=== PATIENT | female | born 1960 | race Caucasian/White ===

== ENCOUNTER 2024-09-09 12:54 | Emergency (ER) | payer MEDICARE, SELFPAY ==
[2024-09-09 13:13] VITALS: BP 142/80; PULSE 94; TEMP 36.8; O2SAT 97; BMI 21.3
--- NOTE | 2024-09-09 13:33 | XR_ITS ---
The [address] [address] Patient Name: ARON MEADOWS MRN: [id number] date: 1960 Sex: F Assigned Patient Location: ER Current Patient Location: ER Accession/Order Number: [id number] Exam Date: 09/09/2024 13:54 Report Date: 09/09/2024 14:22 At the request of: TANG MCGREGOR Procedure: XR tibia fibula RT 2V PROCEDURE: XR tibia fibula RT 2V HISTORY: laceration to lower right leg COMPARISON: None. FINDINGS: BONES:No fracture, acute abnormality, or significant arthropathy. SOFT TISSUES:Skin surface irregularity compatible with history of laceration to anterior lateral mid castrejon. No radiopaque foreign body. EFFUSION:None visible. OTHER: Negative. XR/XR tibia fibula RT 2V IMPRESSION: 1. Anterior soft tissue injury. No radiopaque foreign body. 2. No fracture or appreciable acute bone involvement. Electronically authenticated by: LENNOX GARCIA Date: 09/09/2024 14:22
[2024-09-09] MEDS: ADACEL DIPH,PERTUSS(ACELL),TET VAC/PF 0.5 ML ADULT SYRINGE IM (15:12)
--- NOTE | 2024-09-09 15:38 | CT_ITS ---
The [address] [address] Patient Name: ARON MEADOWS MRN: [id number] date: 1960 Sex: F Assigned Patient Location: ER Current Patient Location: Accession/Order Number: [id number] Exam Date: 09/09/2024 16:02 Report Date: 09/09/2024 16:47 At the request of: COLT NOBLES Procedure: CT pelvis wo con EXAM: CT pelvis wo con HISTORY: The patient is a 64-year-old female, pain COMPARISON: None. TECHNIQUE: CT images were obtained through the bony pelvis and both hips without intravenous contrast and reformatted in 2 dimensions. Dose reduction techniques were achieved by using automated exposure control and/or adjustment of mA and/or kV according to patient size and/or use of iterative reconstruction technique. FINDINGS: The bone images demonstrate no fractures or cortical discontinuities within either proximal femur or elsewhere throughout the bony pelvis. Specifically, no fractures or cortical discontinuities are seen within the sacrum or coccyx. The alignment of both hip joints are maintained. The sacroiliac joints are maintained. The pubic symphysis is maintained. Chondrocalcinosis is seen within the pubic symphysis. This is a nonspecific finding. The soft tissue images demonstrate a right adnexal cyst. No other abnormal fluid collections are seen on this non-contrast enhanced study. CT/CT pelvis wo con IMPRESSION: No fractures or dislocations. Electronically authenticated by: LORA TYLER Date: 09/09/2024 16:47
[2024-09-09] MEDS: HYDROCODONE/ACET 5-325 MG TABLET 1 TAB PO (15:57)
--- NOTE | 2024-09-09 16:43 | ED_ITS ---
HPI HPI - General Adult General Chief complaint: Wound/Laceration Stated complaint: LOWER EXTRIMITY INJURY Time Seen by Provider: 09/09/24 13:33 Source: patient Mode of arrival: Wheelchair Limitations: no limitations History of Present Illness HPI narrative: Patient is a 64-year-old female who is presenting to the ER today with chief complaint of a fall. Patient was walking her dog, patient had her feet tangled with a dog rope/chain, and patient fell down, landing on her buttocks, along with a right anterior leg laceration. Patient did not hit her head. She has no headache or neck pain. Patient has ecchymosis to her lower extremities. Patient has a large skin tear to the right anterior castrejon. Patient takes a baby aspirin a day. Patient has a history of leukemia. Patient has no chest pain, no shortness of breath. No abdominal pain, nausea or vomiting. Patient was brought to the ER, she had nothing for pain prior to arrival. Patient is having significant amount of pain to sacrum and coccyx. Patient will have an update on her tetanus shot today. All systems are negative except as noted/marked. All systems reviewed and otherwise negative. Nurses note and vital signs reviewed and patient is not hypoxic. General: The patient appears well and in no apparent distress. Patient is resting comfortably on cart. Patient is not toxic, lethargic, or listless Skin: Warm, dry, no pallor noted. There is no rash noted. No petechiae, purpura. Patient has approximate 4 x 7 V-shaped skin tear to the right anterior castrejon, no active bleeding. Patient has ecchymosis distally to the right skin tear to the ankle and foot, no pain to the area. Patient has some ecchymosis to the left lower extremity as well, along with some the forms bilateral. Head: Normocephalic, atraumatic; patient has no scalp hematoma. She has no midline or paracervical tenderness palpation. Range of motion of cervical spine no difficulty. Eye: Normal conjunctiva, no drainage, EOMI. PERRL Ears, Nose, Mouth, and Throat: oral mucosa is moist. Nares patent. Mouth without vesicles. Cardiovascular: Regular Rate and Rhythm, no murmur, gallop, rub Respiratory: Patient is in no distress, no accessory muscle use, lungs are clear to auscultation, no wheezing, rales or rhonchi Back: Midline and para sacral and coccyx tenderness to palpation, patient has mild to moderate lower paralumbar tenderness palpation, from approximately L5- S1. No rash, no ecchymosis to upper buttocks, or along the lower lumbar/sacral/coccyx area posteriorly patient has moderate to severe non- tender, no CVA tenderness bilaterally to percussion. No CT LS midline pain GI: no tenderness to palpation, no masses appreciated. No rebound, guarding, or rigidity noted. No distention Musculoskeletal: Patient has full range of motion of all of the extremities, no motor, sensory, or focal neurological deficits Neurological: A&O x4, normal speech Psychiatric: Cooperative Related Data Previous Rx's ?Medication ?Instructions ?Recorded hydrocodone 5 mg-acetaminophen 325 0.5 tab PO Q4H PRN pain #10 tabs 09/09/24 mg tablet Allergies Allergy/AdvReac Type Severity Reaction Status Date / Time Sulfa (Sulfonamide AdvReac Mild Fever Verified 09/09/24 13:13 Antibiotics) Opioid HPI Opioid Management Most Recent Opioid Data: Last Pain Scale 5 09/09/24 15:57 09/09/24 Last MAR Pain Assessment 09/09/24 15:57 PFSH PFSH Social History Little interest or pleasure in doing things: not at all Feeling down, depressed, or hopeless: not at all Exam Constitutional Vital Signs, click to edit/add: Last Vital Signs Temp 98.2 F 09/09/24 13:13 Pulse 94 H 09/09/24 13:13 Resp 18 09/09/24 13:13 BP 142/80 H 09/09/24 13:13 Pulse Ox 97 09/09/24 13:13 O2 Del Method Room Air 09/09/24 13:13 Course Vital Signs Vital signs: Vital Signs Temperature 98.2 F 09/09/24 13:13 Pulse Rate 94 H 09/09/24 13:13 Respiratory Rate 18 09/09/24 13:13 Blood Pressure 142/80 H 09/09/24 13:13 Pulse Oximetry 97 09/09/24 13:13 Oxygen Delivery Method Room Air 09/09/24 13:13 Temperature 98.2 F 09/09/24 13:13 Pulse Rate 94 H 09/09/24 13:13 Respiratory Rate 18 09/09/24 13:13 Blood Pressure 142/80 H 09/09/24 13:13 Pulse Oximetry 97 09/09/24 13:13 Oxygen Delivery Method Room Air 09/09/24 13:13 Medical Decision Making MDM Narrative Medical decision making narrative: Patient is having significant pain to her sacrum and coccyx, no pain to bilateral pelvic crest, or bilateral ASIS or PSIS. Patient did have a CT of the pelvis secondary to patient's size, age, female, history of osteoporosis, pain, and fall. Patient tib-fib x-ray shows no acute fracture dislocation or acute abnormality. Patient had a skin tear. Patient had tetanus update. Skin tear was irrigated and clean, Steri-Strips were placed. Please see nursing notes. [address] of the pelvis shows no acute fracture. Education on using ice, stretching was discussed. Patient already uses a donut pad at home when she is sitting down, using additional pillows resources were discussed. Patient was educated on more pain that could happen tonight and tomorrow, she continues ice, Tylenol, stretching. Patient knows not to take Tylenol with Sutherland, this was pl aced on her discharge paperwork as well. No questions at discharge. Discharge Plan Discharge Chief Complaint: Wound/Laceration Clinical Impression: Coccygeal contusion, Skin tear of right lower leg without complication, Fall, Ecchymosis Patient Disposition: Home, Self-Care Time of Disposition Decision: 17:32 Condition: Fair Prescriptions / Home Meds: New hydrocodone-acetaminophen 5-325 mg tablet 0.5 tab PO Q4H PRN (Reason: pain) Qty: 10 0RF Print Language: Greek Instructions: Contusion in Adults (ED), Skin Tear (ED), Fall Prevention (ED), Laceration Without Closure (ED), Ecchymosis (ED) Additional Instructions: Education on Steri-Strips and skin tears have been done at bedside and on discharge paperwork. Use topical antibiotic ointment of Neosporin, bacitracin, or triple antibiotic to the wound 3-4 times a day to help prevent infection. Steri-Strips will fall off in approximately 5 to 7 days, let them fall off on their own. Do not have your legs submerged under water for the next 2 weeks to help prevent infection. Follow-up with PCP for wound evaluation and reassessment. Use donut pads to help sit on to help relieve the pressure from your tailbone. Also sit on pillows or cushions to help as well. A copy of your CT report has been given to you and explained at bedside Alternate Tylenol and either Motrin, Advil, or ibuprofen every 4 hours to help with pain. If you are having severe pain, substitute a Sutherland tablet instead of Tylenol. Do not take Tylenol and Sutherland at the same time, you may actually take too much Tylenol at 1 setting or in 1 day. Maximum Tylenol dose of Tylenol is 3000 mg a day. Maximum dose of either Motrin, Advil, or ibuprofen is 2400 mg a day. Referrals: Physician,Non-Staff, MD [Physician] - 1 week
== END 2024-09-09 17:57 | disposition home or self-care (01) ==
PROVIDERS: Emergency Provider Emergency Medicine; PCP Family Medicine
DX: S30.0XXA Contusion of lower back and pelvis, initial encounter (principal); W01.0XXA Fall on same level from slipping, tripping and stumbling without subsequent striking against object, initial encounter; S81.811A Laceration without foreign body, right lower leg, initial encounter; S80.12XA Contusion of left lower leg, initial encounter; S80.11XA Contusion of right lower leg, initial encounter; Z79.82 Long term (current) use of aspirin; Z23 Encounter for immunization; M81.0 Age-related osteoporosis without current pathological fracture
CPT/HCPCS: 72192; 73590; 90471; 90715; 99285

== ENCOUNTER 2025-04-14 15:22 | Outpatient (OUT) | payer MEDICARE, SELFPAY ==
--- OUTSIDE RECORDS SUMMARY | 2025-04-14 15:26 | XMS_ITS | Encounter Summary ---
Author Organization [facility] Address [id number] [address] [place] [address] Care Team Providers Care Surgical Product Sales Consultant Name Role Phone Jessica Saab MD Primary Care Provider [phone] Encounter Details Date Type Department Care Team (Late st Contact Info) Description 06/18/2017 Telephone [facility] [address] [facility] [place] [address] Pooja Mcduffie CMA Social History Tobacco Use Types Packs/Day Years Used Date Smoking Tobacco: Never Smokeless Tobacco: Never Alcohol Use Standard Drinks/Week Comments Yes 1 (1 standard drink = 0.6 oz pur e alcohol) seldom,weekly Comments No Sex and Gender Information Value Date Recorded Sex Assigned at Not on file Legal Sex Female 11:32 AM EDT Gender Identity Not on file Sexual Orientation Not on file documented as of this encounter Miscellaneous Notes * Telephone Encounter - Pooja Mcduffie CMA - 06/18/2017 9:36 AM EDT RADIOLOGY REQUESTED AN MRI FOR W/ AND W/O CONTRAST OF THE ABDOMEN Pooja Mcduffie CMA 06/18/17 0937 documented in this encounter Plan of Treatment Not on file documented as of this encounter Visit Diagnoses Not on filedocumented in this encounter Care Teams Surgical Product Sales Consultant Relationship Specialty Start Date End Date Jessica Saab MD [address] [place], [place] [id number] PCP - General Family Medicine 12/18/23 documented as of this encounter
--- OUTSIDE RECORDS SUMMARY | 2025-04-14 15:26 | XMS_ITS | Encounter Summary ---
Author Organization [facility] Address [address] [place] [address] Care Team Providers Care Cost Reduction Engineer Name Role Phone Jessica Saab MD Primary Care Provider [phone] Jessica Saab MD Primary Care Provider [phone] Encounter Details Date Type Department Care Team (Late st Contact Info) Description 05/05/2023 Abstract [facility] [address] [place] [id number] Keith Gibbons, DPAmol [address] [place], [place] [id number] Social History Tobacco Use Types Packs/Day Years Used Date Smoking Tobacco: Never Tobacco Cessation:Counseling Given: Not Answered Alcohol Use Standard Drinks/Week Comments Yes 1 (1 standard drink = 0.6 oz pure alcohol) 1-2 drinks less than monthly in the past year, Caffeine intake: 1-2 cups per day coffee Comments Unknown Sex and Gender Information Value Date Recorded Sex Assigned at Not on file Legal Sex Female 6:41 PM EDT Gender Identity Not on file Sexual Orientation Not on file documented as of this encounter Plan of Treatment Not on file documented as of this encounter Visit Diagnoses Not on filedocumented in this encounter Care Teams Cost Reduction Engineer Relationship Specialty Start Date End Date Jessica Saab MD PCP - General Family Medicine 05/04/23 02/22/25 Jessica Saab MD [address] [place] [phone] PCP - General Family Medicine 02/23/25 documented as of this encounter
--- OUTSIDE RECORDS SUMMARY | 2025-04-14 15:26 | XMS_ITS | Encounter Summary ---
Author Organization [facility] Address [id number] [address] [place] [address] Care Team Providers Care Toll Mechanic Name Role Phone Jessica Saab MD Primary Care Provider [phone] Reason for Visit * Reason Onset Date Comments Med Refill 01/24/2019 Encounter Details Date Type Department Care Team (Late st Contact Info) Description 01/24/2019 Refill [facility] [address] [place] [address] Irina Snider CMA Social History Tobacco Use Types Packs/Day Years Used Date Smoking Tobacco: Never Smokeless Tobacco: Never Alcohol Use Standard Drinks/Week Comments Yes 1 (1 standard drink = 0.6 oz pur e alcohol) seldom,weekly PHQ-2 Answer Date Recorded PHQ-2 Score 0 10/21/2018 Childcare Answer Date Recorded Childcare Unknown 01/19/2019 Employment Answer Date Recorded Employment Unknown 01/19/2019 Comments No Sex and Gender Information Value Date Recorded Sex Assigned at Not on file Legal Sex Female 11:32 AM EDT Gender Identity Not on file Sexual Orientation Not on file documented as of this encounter Plan of Treatment Not on file documented as of this encounter Visit Diagnoses Not on filedocumented in this encounter Additional Health Concerns Assessment Noted Time PHQ-9 Depression Total Score: 0 10/13/20 18 2:00 PM EST documented as of this encounter Care Teams Toll Mechanic Relationship Specialty Start Date End Date Jessica Saab MD [address] [place] [address] PCP - General Family Medicine 12/18/23 documented as of this encounter
--- OUTSIDE RECORDS SUMMARY | 2025-04-14 15:26 | XMS_ITS | Clinical Summary ---
Author Organization [facility] Address [address] [place] [address] Care Team Providers Care Trousseau Consultant Name Role Phone Unavailable Primary Care Provider Unavailabl e Social History Tobacco Use Types Packs/Day Years Used Date Smoking Tobacco: Never Assessed [place] Safety & Environment Answer Date Rec orded Fear of Current or Ex-Partner Not on file Emotionally Abused Not on file 12/17/2023 Physically Abused Not on file 12/17/2023 Sexually Abused Not on file 12/17/2023 Physically or Sexually Abused Not on file Comments Unknown Sex and Gender Information Value Date Recorded Sex Assigned at Not on file Legal Sex Female 10:02 PM EDT Gender Identity Not on file Sexual Orientation Not on file Plan of Treatment Not on file
--- OUTSIDE RECORDS SUMMARY | 2025-04-14 15:26 | XMS_ITS | Clinical Summary ---
Author Organization [facility] Address [address] [place] [address] Care Team Providers Care Sales Account Director Name Role Phone Dina Chaparro MD Primary Care Provider [phone] Allergies Active Allergy Reactions Criticality Noted Date Comments Morphine 02/19/2013 Penicillins 02/19/2013 Sulfa Antibiotics 02/19/2013 Medications cycloSPORINE (SANDIMMUNE) 100 MG capsule Take 100 mg by mouth daily. Active sulfacetamide (BLEPH-10) 10 % ophthalmic ointment 10 % daily. Every 6 hours. Active vancomycin (VANCOCIN) 125 MG capsule Take 125 mg by mouth daily. Active omeprazole (PRILOSEC) 20 MG capsule Take 40 mg by mouth daily. Active multivitamin (THERAGRAN) per tablet Take 1 tablet by mouth daily. Active acyclovir (ZOVIRAX) 400 MG tablet Take 400 mg by mouth 2 times daily. Active metronidazole (METROCREAM) 0.75 % cream Apply 0.75 % topically 2 times daily. Apply topically 2 times daily. Active olopatadine (PATANOL) 0.1 % ophthalmic solution Place 1 drop into both eyes 2 times daily. Active fluticasone (FLOVENT HFA) 220 MCG/ACT inhaler Inhale 1 puff into the lungs 2 times daily. Active albuterol (PROVENTIL HFA;VENTOLIN HFA) 108 (90 BASE) MCG/ACT inhaler Inhale 2 puffs into the lungs every 6 hours as needed. Active fluticasone (FLONASE) 50 MCG/ACT nasal spray 1 spray by Nasal route as needed. Active acetaminophen (TYLENOL) 650 MG/20.3ML SUSP Take 650 mg by mouth 2 times daily. Active predniSONE (DELTASONE) 10 MG tablet Take 10 mg by mouth daily. Active Active Problems Problem Noted Date Diagnosed Date Leukemia 02/20/2013 Asthma 02/20/2013 Lumbar vertebral fracture 02/19/2013 Immunizations Immunization Administration Dates Next Due Td, unspecified formulation 02/19/2013 Social History Tobacco Use Types Packs/Day Years Used Date Smoking Tobacco: Never Assessed Comments Unknown Sex and Gender Information Value Date Recorded Sex Assigned at Not on file Legal Sex Female 3:18 PM EST Gender Identity Not on file Sexual Orientation Not on file Last Filed Vital Signs Vital Sign Reading Time Taken Comments Blood Pressure 121/67 02/20/2013 4:00 PM EDT Pulse 85 02/20/2013 4:00 PM EDT Temperature 36.5 C (97.7 F) 02/20/2013 4:00 PM EDT Respiratory Rate 11 02/20/2013 4:00 PM EDT Oxygen Saturation 100% 02/20/2013 4:00 PM EDT Inhaled Oxygen Concentration - - Weight 61.2 kg (135 lb) 02/19/2013 11:05 PM EDT Height 157.5 cm (5' 2 ) 02/19/2013 11:05 PM EDT Body Mass Index 24.69 02/19/2013 11:05 PM EDT Plan of Treatment Not on file Advance Directives * Full Code (Latest Code Status on File) Date Activated Date Inactivated Comments 02/19/2013 10:59 PM 02/20/2013 11:39 PM Care Teams Sales Account Director Relationship Specialty Start Date End Date Dina Chaparro MD [address] [place] [address] PCP - General 02/20/13
--- OUTSIDE RECORDS SUMMARY | 2025-04-14 15:26 | XMS_ITS | Clinical Summary ---
Author Organization [employer] [facility] tem Address [id number] [address] [place] [address] Care Team Providers Care Optical Goods Drill Operator Name Role Phone Jessica Saab MD Primary Care Provider [phone] Allergies Active Allergy Reactions Criticality Noted Date Comments Influenza Virus Vaccines Other (See Comments) High 10/22/2017 Pt on immunosuppression and can not receive live vaccine Morphine 09/11/2016 Penicillins 09/11/2016 Sulfa (Sulfonamide Antibiotics) 09/11/2016 Trimethoprim 10/08/2020 Other reaction(s): Unknown, Unknown Medications food supplemt, lactose-reduced (NUTRITIONAL DRINK) liquidIndications: Weight loss of more than 10% body weight,Adult T-cell leukemia/lymphoma, 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 90 Bottle 3 02/04/20 18 Active predniSONE (DELTASONE) 5 mg tabletIndications: Large granular lymphocytic leukemia (CMS-HCC) Take 1 tablet (5 mg total) by mouth daily. 90 tablet 05/21/20 19 Active hcxexq-fypolzot-jz ylase (CREON) 24,000-76,000 -120,000 unit capsule,delayed release(DR/EC)Kate cations:Pancreatic insufficiency Take 1 capsule (24,000 units of lipase total) by mouth 3 (three) times a day with meals. 90 capsule 1 05/21/20 19 Active danazol (DANOCRINE) 100 mg capsuleIndications :Chronic anemia Take 1 capsule (100 mg total) by mouth 2 (two) times a day. 180 capsule 05/21/20 19 Active Additional Information Patient taking differently: 200 mgoral 2 times daily, Reported on 01/16/2023 verapamil SR (CALAN-SR) 240 mg CR tablet TAKE ONE TABLET BY MOUTH DAILY 90 tablet 1 08/01/20 19 Active ivermectin 1 % cream Apply topically daily. Active vorinostat (ZOLINZA) 100 mg chemo capsule Take 3 capsules by mouth daily Active deferasirox (EXJADE) 125 MG disintegrating tablet Take 180 mg by mouth every morning before breakfast. 2 tabs /day Active levothyroxine (SYNTHROID, LEVOTHROID) 100 MCG tablet Take 1 tablet (100 mcg total) by mouth in the morning. Active levothyroxine (SYNTHROID, LEVOTHROID) 25 MCG tablet Take 1 tablet (25 mcg total) by mouth in the morning. Active aspirin 81 mg chewable tablet Chew 1 tablet (81 mg total) and swallow in the morning. 30 tablet 02/08/20 Active rosuvastatin (CRESTOR) 10 mg tablet Take 1 tablet (10 mg total) by mouth in the morning. 30 tablet 02/08/20 Active zoledronic dzpd-rgfgzbrJ-ghuy r (RECLAST) 5 mg/100 mL piggyback as directed Intravenous Active sennosides (SENNA ORAL) Take by mouth. Activ e acetaminophen (TYLENOL ORAL) Take by mouth. Active dicyclomine (BENTYL) 10 mg capsule Take 1 capsule (10 mg total) by mouth 4 (four) times a day before meals and nightly. Active lactulose (CHRONULAC) 10 gram/15 mL solution Take 30 mL (20 g total) by mouth 3 (three) times a day. Active polyethylene glycol (GLYCOLAX) 17 gram packet Take 17 g by mouth in the morning. 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 Specialist do not think pancreatic cyst is cause of pain. Pt states creon help constipation and appetite but not intermittent pain Ovarian cyst 06/21/2019 Chronic anemia 05/21/2019 Preventative health care 03/07/2019 Assessment & Plan (03/07/2019 2:46 PM EDT): DATE WHEN VACCINE ------- --FLU YRLY IN FALL No live vaccine --TETANUS Q 10 YRS needs --HSV ONCE AGE 59 No live vaccine --PREVNAR 13 ONCE AGE 64 2014 --PPSSV 23 ONCE AGE 65 2013 CA SCREENING ----- --COLONOSCOPY AGE 50 - 74 Gi apt in Oct 2017 --FIT AGE 50 - 75 na --PSA AGE 50 - 70 na -DEAN AGE 50 - 70 na --PAP AGE 21 - 65 11/19/16 Dr. Chaparro --MAMMOGRAM AGE 45 TO 75 08/18/17 OSTEOPOROSIS ----- --DEXA MENOPAUSAL 04/20/17 OPTHO YEALRY ? DENTAL YEARLY ? MEDICARE WELLNESS YEARLY (65) na DM FOOT EXAM YEARLY na Essential hypertension 01/19/2018 Overview (10/26/2018): Verapamil , lisinopril Osteoporosis 05/19/2017 Overview (05/17/2019): Vitamine D suppliment, Tums/ Hx pathological Fx / On steroids HLD (hyperlipidemia) 05/19/2017 Moderate asthma without complication 05/19/2017 Overview (10/26/2018): Albuterol, Breo, Secondary pulmonary hypertension 11/07/2016 Overview (10/26/2018): [facility] [place] Rheumatoid arthritis of knee 11/08/2015 Overview (10/26/2018): On steroid intermediate current use of systemic steroids 04/10 Spinal stenosis of lumbar region 02/21/2013 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 - Admitted for ATG; PICC placed 07/30 (to be pulled prior to discharge) - Day 5 ATG (D1=08/03/2017) - For discharge, pt will go home on prednisone 60 mg daily x14 days, cyclosporine 150 mg BID and acyclovir Uterine fibroid Overview (06/30/2017): MRI completed 2016 Personal history of immunosupression therapy Overview (10/26/2018): leukemia / on steroids GERD (gastroesophageal reflux disease) Overview (10/26/2018): sucralfate Pancreatic insufficiency Overview (10/26/2018): Creon Constipation Overview (10/26/2018): Senna Vitamin D deficiency Overview (10/26/2018): Vitamin d def Magnesium deficiency Overview (10/26/2018): Magnesium suppliment Resolved Problems Problem Noted Date Diagnosed Date Resolved Date Abnormal US (ultrasound) of abdomen 03/02/2018 10/26/2018 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/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 05/17/2019 Adult T-cell leukemia 05/19/20172018 Human parvovirus infection 05/19/2017 0 10/26/2018 Rosacea 05/19/2017 10/26/2018 Abnormal electrocardiogram 10/23/2015 0 10/26/2018 Flexor tenosynovitis of finger 04/10/2015 06/21/2019 Pathological fracture due to osteoporosis 04/10/2015 05/17/2019 Neutropenia 01/10/2013 05/17/2019 Overview (05/19/2017): Overview: ICD-10 Go-Live Postherpetic neuralgia 11/29/201205/17 Overview (05/19/2017): Overview: Continue gabapentin Pancreatic lesion 05/17/2019 Overview (10/26/2018): MRI with probable cyst/2016/repeat due October 2017 / extensive history of recurrent cyst Immunizations Immunization Administration Dates Next Due Influenza, Unspecified 07/26/2016 Pneumococcal Conjugate 07/26/2014 Pneumococcal Conjugate 13-Valent 08/20/2015 Family History Medical History Relation Name Comments Alcohol abuse Brother Hypertension Brother Atrial fibrillation Father Cancer Father Diabetes Father Heart disease Father Breast cancer Mother Cancer Mother Diabetes Mother Heart disease Mother Relation Name Status Comments Brother Father Alive Mother Social History Tobacco Use Types Packs/Day Years Used Date Smoking Tobacco: Never Smokeless Tobacco: Never Tobacco Cessation:Counseling Given: Not Answered Alcohol Use Standard Drinks/Week Comments Not Currently 1 (1 standard drink = 0.6 oz pur e alcohol) very little [employer] Utilities Answer Date Recorded In the past 12 months has e Sports[employer], gas, oil, or water [employer] threatened to shut off services in your home? No 12/18/2023 PHQ-2 Answer Date Recorded Total Score 3 01/28/2024 PRAPARE - Transportation Answer Date Re corded In the past 12 months, has l ack of transportation kept you from medical appointments or from getting medications? No 11/27 In the past 12 months, has l ack of transportation kept you from meetings, work, or from getting things needed for daily living? No 12/18/2023 Housing Instability Answer Date Recorde d Are you worried or concerned that in the next two months you may not have stable housing that you own, rent or stay in as a part of a household? No 12/18/2023 Childcare Answer Date Recorded Childcare Unknown 04/04/2019 Employment Answer Date Recorded Employment Unknown 04/04/2019 Hunger Screening Answer Date Recorded Within the past 12 months we worried whether our food would run out before we got money to buy more. Never True 01/28/2024 Within the past 12 months th e food we bought just didn't last and we didn't have money to get more. Never True 01/28/2024 Purpose - Life Answer Date Recorded Purpose and direction in life Unknown Comments No Sex and Gender Information Value Date Recorded Sex Assigned at Not on file Legal Sex Female 11:32 AM EDT Gender Identity Not on file Sexual Orientation Not on file Last Filed Vital Signs Vital Sign Reading Time Taken Comments Blood Pressure 118/58 01/28/2024 11:33 AM EDT Pulse 76 01/28/2024 11:33 AM EDT Temperature 36.9 C (98.4 F) 12/19/2023 7:50 AM EST Respiratory Rate 16 12/19/2023 7:50 AM EST Oxygen Saturation 98% 12/19/2023 7:50 AM EST Inhaled Oxygen Concentration - - Weight 51.7 kg (114 lb) 01/28/2024 11:33 AM EDT Height 152.4 cm (5') 01/28/2024 11:33 AM EDT Body Mass Index 22.26 01/28/2024 11:33 AM EDT Plan of Treatment Health Maintenance Due Date Last Done Comments Zoster (Shingles) Vaccine (1 of 2) 1978 DTaP,Tdap and Td Vaccines (1 - Tdap) 02/20/2013 02/19/2013 Mammogram 04/05/2020 04/05/2019, 09/10/2017 COVID-19 Vaccine (3 - Modern a risk series) 03/13/2021 02/13/2021, 01/16/2021 Colonoscopy 05/05/2023 05/05/2013 Fall Risk Screening 2024 Adult BMI Screening 01/27/2025 01/28/2024 Depression Screening 01/27/2025 01/28/2024 Tobacco Screening 05/10/2025 05/10/2024 Influenza Vaccine 06/26/2025 08/03/2023, , 07/03/2021, Additional history exists Pap Smear Discontinued 11/17/2016, 11/17/2016 Goals Goal Patient Goal Type Associated Problems Recent Progress Patient-Stated? Author home General Yes Bella Herrmann LSW Note: Evaluation of progress towards goal: Safe dc transition from hospital to home. Medical Devices Implanted Type Area Solidworks Drafter Device Identifier Shelf Expiration Date Model / Serial / Lot Recorder Crd Linq Ii Ins - [id number] - [id number] Implanted:Qty : 1 on 08/08/2022 at [facility] Other Implant [employer] CARD RHYTHM DEVICES 06/06/2023 [id number] / [id number] / Port-04/01/2021 Implanted:04/2021 (Quantity not on file) Port Right: Chest Procedures Procedure Name Priority Date/Time Associated Diagnosis Comments VT REM INTERROG SCRMS <30 D PHYS/QHP Routine 03/17/2025 10:09 PM EDT VT REM INTERROG SCRMS <30 D PHYS/QHP Routine 02/14/2025 10:06 PM EDT VT REM INTERROG SCRMS <30 D PHYS/QHP Routine 01/14/2025 10:06 PM EDT MAMM SCREENING BILATERAL W CAD Routine 04/05/2019 11:01 AM EDT Breast cancer screening HIGH RISK HPV W/DANY Routine 11/17/2016 2:25 PM EST HM COLONOSCOPY Routine 05/05/2013 from Last 3 Months or Most Recently Relevant to Health Maintenance Results * Remote Device Check (03/17/2025 10:09 PM EDT) Anatomical Region Laterality Modality Other 03/17/2025 10:0 9 PM EDT Laith Fleming MD HEALTH MAINTENANCE Final Result * Remote Device Check (02/14/2025 10:06 PM EDT) Anatomical Region Laterality Modality Other 02/14/2025 10:0 6 PM EDT Mamie Foster MD HEALTH MAINTENANCE Final Result * Remote Device Check (01/14/2025 10:06 PM EDT) Anatomical Region Laterality Modality Other 01/14/2025 10:0 6 PM EDT Laith Fleming MD HEALTH MAINTENANCE Final Result * Mammography screening bilateral with CAD (04/05/2019 11:01 AM EDT) Anatomical Region Laterality Modality Breast Bilateral Mammography 04/05/2019 11:1 0 AM EDT Narrative 04/05/2019 11:11 AM EDT MAMM SCREENING BILATERAL W CAD WITH TOMOSYNTHESIS HISTORY: Screening. COMPARISON: 09/10/2017 and priors FINDINGS: There are scattered areas of fibroglandular density. Negative for malignancy. Computer-aided detection was used in the interpretation of this examination. IMPRESSION: BIRADS 1 - Negative. Normal interval follow-up in 12 months. OVERALL ASSESSMENT- NEGATIVE. A letter of notification will be sent to the patient regarding the results. Finalized by Karl Paul MD on 04/05/2019 11:11 AM b 1 MAMM 1 YR Procedure Note Karl Paul MD - 04/05/2019 MAMM SCREENING BILATERAL W CAD WITH TOMOSYNTHESIS HISTORY: Screening. COMPARISON: 09/10/2017 and priors FINDINGS: There are scattered areas of fibroglandular density. Negativefor malignancy. Computer-aided detection was used in the interpretation of thisexamination. IMPRESSION: BIRADS 1 - Negative. Normal interval follow-up in 12 months. OVERALL ASSESSMENT- NEGATIVE. A letter of notification will be sent to the patient regarding theresults. Finalized by Karl Paul MD on 04/05/2019 11:11 AM b 1 MAMM 1 YR Olivia Ilo DO IMG MAMMOGRAPHY ORDERABLES Final Result * High risk HPV w/dany (11/17/2016 2:25 PM EST) Hpv specimen type ThinPrep 11/19/2016 2:26 PM EST [facility] Hpv 16 Negative Negative 11/20/2016 1:20 PM EST [facility] Hpv 18 Negative Negative 11/20/2016 1:20 PM EST [facility] Other high risk hpv Negative Negative 11/20/2016 1:20 PM EST [facility] Comment: HPV types 31,33,35,39,45,52,56,58,59,66 and 68 DNA were undetectable. 11/17/2016 2:25 PM EST 11/19/2016 2:25 PM EST us Not In System Ref Prov LAB BLOOD ORDERABLES Grace l Result [facility] [address] [place] [address], [place] [facility] * COLONOSCOPY (05/05/2013) Colonoscopy COLONOSCOPY [facility] EXTERNAL NON-INTERFACE D REF LAB us Scanning Provider External HEALTH MAINTENANCE Fi nal Result [facility] EXTERNAL NON-INTERFACED REF LAB [address] [employer] [facility] [place] [address] from Last 3 Months or Most Recently Relevant to Health Maintenance Insurance [employer] MEDICARE Advance Directives * Full Code (Latest Code Status on File) Date Activated Date Inactivated Comments 12/18/2023 2:15 PM 12/19/2023 4:24 PM * Full Code Date Activated Date Inactivated Comments 02/06/2022 5:26 PM 02/07/2022 7:20 PM * Full Code Date Activated Date Inactivated Comments 03/18/2017 1:56 PM 03/18/2017 8:07 PM Care Teams Optical Goods Drill Operator Relationship Specialty Start Date End Date Jessica Saab MD [address] [place] [address] PCP - General Family Medicine 12/18/23
--- OUTSIDE RECORDS SUMMARY | 2025-04-14 15:26 | XMS_ITS | Encounter Summary ---
Author Organization [employer] tem Address [id number] [address] [place] [address] Care Team Providers Care Item Processing Clerk Name Role Phone Jessica Saab MD Primary Care Provider Encounter Details Date Type Department Care Team (Late st Contact Info) Description 03/05/2022 Orders Only [facility] [address] [place] [id number] Ref Prov, [place] [address] Social History Tobacco Use Types Packs/Day Years Used Date Smoking Tobacco: Never Smokeless Tobacco: Never Alcohol Use Standard Drinks/Week Comments Not Currently 1 (1 standard drink = 0.6 oz pur e alcohol) PHQ-2 Answer Date Recorded Total Score 0 06/21/2019 Childcare Answer Date Recorded Childcare Unknown 04/04/2019 Employment Answer Date Recorded Employment Unknown 04/04/2019 Purpose - Life Answer Date Recorded Purpose and direction in life Unknown Comments No Sex and Gender Information Value Date Recorded Sex Assigned at Not on file Legal Sex Female 11:32 AM EDT Gender Identity Not on file Sexual Orientation Not on file COVID-19 Exposure Response Date Recorded In the last 10 days, have yo u been in contact with someone who was confirmed or suspected to have Coronavirus/COVID-19? No / Unsure 02/18/2022 8:55 AM EDT documented as of this encounter Plan of Treatment Not on file documented as of this encounter Goals Goal Patient Goal Type Associated Problems Recent Progress Patient-Stated? Author home General Yes Bella Herrmann LSW Note: Evaluation of progress towards goal: Safe dc transition from hospital to home. documented as of this encounter Procedures Procedure Name Priority Date/Time Associated Diagnosis Comments EVENT MONITOR RECORDING Routine 02/27/2022 documented in this encounter Results * Event Monitor Recording (02/27/2022) Anatomical Region Laterality Modality Other us Not In System Ref Prov [facility] ORDER LISA Final Result documented in this encounter Visit Diagnoses Not on filedocumented in this encounter Additional Health Concerns Assessment Noted Time PHQ-9 Depression Total Score: 0 06/21/20 19 10:00 AM EDT documented as of this encounter Care Teams Item Processing Clerk Relationship Specialty Start Date End Date Jesscia Saab MD [address] [place] [address] PCP - General Family Medicine 12/18/23 documented as of this encounter
--- OUTSIDE RECORDS SUMMARY | 2025-04-14 15:26 | XMS_ITS | Encounter Summary ---
Author Organization [facility] [employer] [facility] tem Address [id number] [address] [place] [address] Care Team Providers Care Wood Fence Erector Name Role Phone Jessica Saab MD Primary Care Provider [phone] Encounter Details Date Type Department Care Team (Late st Contact Info) Description 02/10/2022 Orders Only [facility] - Cardiovascular [address] [place] [address] Debra Edmond, DAVID Social History Tobacco Use Types Packs/Day Years [...] suspected to have Coronavirus/COVID-19? No / Unsure 02/06/2022 10:20 AM EDT documented as of this encounter Plan of Treatment Not on file documented as of this encounter Goals Goal Patient Goal Type Associated Problems Recent Progress Patient-Stated? Author home General Yes Bella Herrmann LSW Note: Evaluation of progress towards goal: Safe dc transition from hospital to home. documented as of this encounter Visit Diagnoses Not on filedocumented in this encounter Additional Health Concerns Assessment Noted Time PHQ-9 Depression Total Score: 0 06/21/20 19 10:00 AM EDT documented as of this encounter Care Teams Wood Fence Erector Relationship Specialty Start Date End Date Jessica Saab MD [address] [place] [id number] PCP - General Family Medicine 12/18/23 documented as of this encounter
--- OUTSIDE RECORDS SUMMARY | 2025-04-14 15:26 | XMS_ITS | Clinical Summary ---
Author Organization [facility] Address [address] [place] [address] Care Team Providers Care Veterinary Pharmacologist Name Role Phone Jessica Saab MD Primary Care Provider [phone] Allergies Active Allergy Reactions Criticality Noted Date Comments Morphine GI intolerance 02/26/2011 Other reaction(s): AOF Other High 10/22/2017 Other Reaction(s): Other (See Comments) Pt on immunosuppression and can not receive live vaccine Penicillins Rash Low 06/02/2012 Other reaction(s): RASH Sulfa Antibiotics Unknown 02/26/2011 dropped O2 level Sulfamethoxazole-Trim ethoprim 05/05/2023 Trimethoprim Unknown 10/08/2020 Other reaction(s): Unknown, Unknown Medications zoledronic acid (Reclast) 5 MG/100ML solution Daily as needed Active vorinostat (Zolinza) 100 MG chemo capsule Stopped at this time d/t low platelets 3 Active acetaminophen (Tylenol) 500 MG tablet Take 650 mg by mouth Active ASPIRIN 81 MG chewable tablet 1 (one) time each day at the same time. Active danazol (Danocrine) 100 MG capsule Take 2 capsules by mouth in the morning and 2 capsules before bedtime. 3 Active deferasirox 180 MG tablet Take 180 mg by mouth in the morning. 3 Active levothyroxine (Synthroid, Levoxyl) 100 MCG tablet Take 100 mcg by mouth in the morning. Active levothyroxine (Synthroid, Levoxyl) 25 MCG tablet TAKE ONE TABLET BY MOUTH DAILY TAKE WITH 100MCG DOSE FOR TOTAL OF 125 MCG DAILY 2 Active multivitamin (Theragran) tablet Take 1 tablet by mouth Daily Active pancrelipase, Utp-Wmov-Ghxv, (Creon) 59398-22639 units capsule Active predniSONE (Deltasone) 5 MG tablet Take 1 tablet by mouth in the morning. Active Probiotic Product (Probiotic Blend) capsule Activ e rosuvastatin (Crestor) 10 MG tablet 1 (one) time each day at the same time. Active verapamil SR (Calan SR) 240 MG ER tablet 1 (one) time each day at the same time. Active dicyclomine (Bentyl) 10 MG capsule Take 10 mg by mouth in the morning and 10 mg at noon and 10 mg in the evening and 10 mg before bedtime. Active lactulose (Chronulac) 10 GM/15ML solution Take 20 g by mouth in the morning and 20 g in the evening and 20 g before bedtime. 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, unspecified leukemia type (HCC); Chronic fatigue 03/16/2025 Bamboo flowsheet [place] [id number] [phone] Alena Toledo PA 02/02/[address] [facility] [address] [phone] Eliu Gabriel, JEANNETTET MRI Results 01/31/2025 [place] [phone] Salvatore Alford DO 01/24/2025 2:00 PM EDT Office Visit [facility] [address] [place] [phone] Frankie Quevedo MD Cognitive impairment (Primary Dx); 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, unspecified leukemia type (HCC); Other insomnia; Family history of dementia 01/18/2025 Telephone [place] [id number] [phone] Salvatore Alford DO Lab results 01/17/2025 2:30 PM EDT Office Visit [facility] [address] [phone] Frankie Quevedo MD Cognitive impairment (Primary Dx); 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, unspecified leukemia type (HCC); Other insomnia; Family history of dementia 01/17/[address]amboo [address] [address] [phone] Frankie Quevedo MD from Last 3 Months Immunizations Immunization Administration Dates Next Due Influenza Nasal, Unspecified 08/10/2019,08/29/20 14 Influenza, High Dose Seasona l, Preservative Free 08/09/2024 Influenza, Unspecified 07/26/2016,08/01/2013, Influenza, injectable, quadr ivalent, preservative free 08/03/2023,08/04/2022,07/03/2021,09/03,08/10/2019,07/18/2019,09/02/2018 ,07/18/2015 Influenza, seasonal, injectable 07/26/2016,08/29 Pneumococcal Conjugate PCV 13 08/20/2015, 014 Pneumococcal Conjugate PCV 7 07/26/2014 Pneumococcal Polysaccharide PPSV23 09/05/2014 Td (adult), unspecified 02/19/2013 Family History Medical History Relation Name Comments Cancer Father bladder Hypertension Father Melanoma Father Cancer Mother breast Heart disease Mother Hypertension Mother Relation Name Status Comments Father Mother Social History Tobacco Use Types Packs/Day Years Used Date Smoking Tobacco: Never Alcohol Use Standard Drinks/Week Comments Yes 1 (1 standard drink = 0.6 oz pure alcohol) 1-2 drinks less than monthly in the past year, Caffeine intake: 1-2 cups per day coffee AUDIT-C Answer Date Recorded Q1: How often do you have a drink containing alc ohol? Monthly or less 09/06/2023 Q2: How many drinks containi ng alcohol do you have on a typical day when you are drinking? 1 or 2 09/06/2023 Q3: How often do you have si x or more drinks on one occasion? Less than monthly 09/06/2023 Comments Unknown Sex and Gender Information Value Date Recorded Sex Assigned at Not on file Legal Sex Female 6:41 PM EDT Gender Identity Not on file Sexual Orientation Not on file Last Filed Vital Signs Vital Sign Reading Time Taken Comments Blood Pressure 104/72 03/16/2025 3:02 PM EDT Pulse 75 03/16/2025 3:02 PM EDT Temperature - - Respiratory Rate 16 03/16/2025 3:02 PM EDT Oxygen Saturation 93% 03/16/2025 3:02 PM EDT Inhaled Oxygen Concentration - - Weight 49 kg (108 lb) 03/16/2025 3:02 PM EDT Height 152.4 cm (5') 03/16/2025 3:02 PM EDT Body Mass Index 21.09 03/16/2025 3:02 PM EDT Plan of Treatment Health Maintenance Due Date Last Done Comments CT Colonography 1959 Colonoscopy 1959 Colorectal Cancer Screening 1959 FIT-DNA 1959 FIT 1959 FOBT 1959 Sigmoidoscopy 1959 Mammogram 04/05/2020 04/05/2019, 08/26, 08/25/2016, Additional history exists Pneumococcal Vaccine: 65+ Ye ars (3 of 3 - PCV20 or PCV21) 08/20/2020 08/20/2015, 09/05/2014, 07/26/2014, Additional history exists Influenza Vaccine Completed 08/09/2024, , 08/04/2022, Additional history exists Procedures Procedure Name Priority Date/Time Associated Diagnosis Comments MRI BRAIN W & WO CONT Routine 01/31/2025 2:47 PM EDT TSH Routine 01/12/2025 8:02 AM EDT Cognitive impairment 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, unspecified leukemia type (HCC) VITAMIN B12 Routine 01/12/2025 8:02 AM EDT Cognitive impairment 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, unspecified leukemia type (HCC) from Last 3 Months Results * MRI BRAIN W & WO CONT (01/31/2025 2:47 PM EDT) Anatomical Region Laterality Modality Radiographic Kayleen ging us Christopher Prashanth DO IMG XR PROCEDURES Final R esult * TSH (01/12/2025 8:02 AM EDT) Blood Venous blood specimen / Unknown us Salvatore Alford DO LAB BLOOD ORDERABLES Grace l Result EXTERNAL LAB * Vitamin B12 (01/12/2025 8:02 AM EDT) Blood Venous blood specimen / Unknown Salvatore Alford DO LAB BLOOD ORDERABLES Grace l Result Performing Organization Address City/[facility]/ZIP Co de Phone Number EXTERNAL LAB from Last 3 Months Insurance [employer] MED[employer]ARE [employer]AGE Care Teams Veterinary Pharmacologist Relationship Specialty Start Date End Date Jessica Saab MD [address] [place] [address] PCP - General Family Medicine 02/23/25
--- OUTSIDE RECORDS SUMMARY | 2025-04-14 15:26 | XMS_ITS | Encounter Summary ---
Author Organization [facility] Address [id number] [address] [place] [address] Care Team Providers Care Tower Erector Helper Name Role Phone Jessica Saab MD Primary Care Provider [phone] Reason for Visit * Reason Comments Med Refill Encounter Details Date Type Department Care Team ([facility] st Contact Info) Description 08/01/2019 Refill [facility] [address] [place] [address] [place] [address] [address] Olivia Canseco, DO [address] [place] [address] [place] [phone] Social History Tobacco Use Types Packs/Day Years Used Date Smoking Tobacco: Never Smokeless Tobacco: Never Alcohol Use Standard Drinks/Week Comments Yes 1 (1 standard drink = 0.6 oz pur e alcohol) seldom,weekly PHQ-2 Answer Date Recorded Total Score 0 06/21/2019 Childcare Answer Date Recorded Childcare Unknown 04/04/2019 Employment Answer Date Recorded Employment Unknown 04/04/2019 Comments No Sex and Gender Information Value [...] documented as of this encounter Care Teams Tower Erector Helper Relationship Specialty Start Date End Date Jessica Saab MD [address] [place] [address] PCP - General Family Medicine 12/18/23 documented as of this encounter
--- OUTSIDE RECORDS SUMMARY | 2025-04-14 15:26 | XMS_ITS | Referral Summary ---
Author Organization [facility] Address [address] [place] [address] Care Team Providers Care Pier Master Assistant Name Role Phone Unavailable Primary Care Provider [...]
--- OUTSIDE RECORDS SUMMARY | 2025-04-14 15:26 | XMS_ITS | Encounter Summary ---
Author Organization [facility] Address [address] [place] [address] Care Team Providers Care Cnc Wood Lathe Operator Name Role Phone Jessica Saab MD Primary Care Provider [phone] Jessica Saab MD Primary Care Provider [phone] Encounter Details Date Type Department Care Team (Late st Contact Info) Description 01/31/2025 Orders Only [facility] [address] [place] [phone] Salvatore Alford DO [address] [place] [phone] Social History Tobacco Use Types Packs/Day Years [...] on file documented as of this encounter Procedures Procedure Name Priority Date/Time Associated Diagnosis Comments MRI BRAIN W & WO CONT Routine 01/31/2025 2:47 PM EDT documented in this encounter Results * MRI BRAIN W & WO CONT (01/31/2025 2:47 PM EDT) Anatomical Region Laterality Modality Radiographic Kayleen ging us Salvatore Alford DO IMG XR PROCEDURES Final R esult documented in this encounter Visit Diagnoses Not on filedocumented in this encounter Care Teams Cnc Wood Lathe Operator Relationship Specialty Start Date End Date Jessica Saab MD PCP - General Family Medicine 05/04/23 02/22/25 Jessica Saab MD [address] [place] [address] PCP - General Family Medicine 02/23/25 documented as of this encounter
--- OUTSIDE RECORDS SUMMARY | 2025-06-06 20:00 | XMS_ITS | Clinical Summary ---
Author Organization Unknown Care Team Providers Care Transition Manager Name Role Phone MARLA MATIAS, YU Unavailable Unavailable HARJEET OT, VINCE Unavailable Unavailable GERALD PT, CB Unavailable Unavailable JAYLON LAYTON, RADHA Unavailable Unavailable INGE RN, FALLON Unavailable Unavailable Payers Payer Name Policy Type Policy Number Effective Date Expira tion Date [employer] MEDICARE ADVANTAGE MYNEXUS/CARELON [id number] MEDICARE - [facility] - [place] [id number] Problems Condition Name Condition Details Condition Category Status Onset Date Resolution Date Last Treatment Date Treating Clinician Comments HYPERTENSIVE CHRONIC KIDNEY DISEASE W STG 1-4/UNSP CHR KDNY Active 10-26 00:00: 00 CHRONIC KIDNEY DISEASE, STAGE 3 UNSPECIFIED Active 10-26 00:00: 00 UNSPECIFIED PROTEIN-JAHAIRA SANTOSH MALNUTRITION Active 10-26 00:00: 00 ANEMIA IN CHRONIC KIDNEY DISEASE Active 10-26 00:00: 00 HYPOTHYROIDI SM, UNSPECIFIED Active 10-26 00:00: 00 PERSONAL HISTORY OF MALIGNANT NEOPLASM OF LIVER Active 10-26 00:00: 00 PERSONAL HISTORY OF LEUKEMIA Active 10-26 00:00: 00 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 Active 10-26 00:00: 00 Allergies, Adverse Reactions, Alerts Allergy Name Allergy Type Status Severity Reaction(s) Onset Date Inactive Date Treating Clinician Comments BACTRIM Propensity to adverse reactions Active 04-09 14:44: 34 MORPHINE Propensity to adverse reactions Active 04-09 14:44: 40 PENICILLIN Propensity to adverse reactions Active 04-09 14:44: 47 SULFA (SULFONAMIDE ANTIBIOTICS) Propensity to adverse reactions Active 04-09 14:45: 27 TRIMETHOPRIM Propensity to adverse reactions Active 04-09 14:45: 41 Immunizations Ordered Immunization Name Filled Immunization Name Date Status Comments Refusal Reason INFLUENZA, LAIV (LIVE VIRUS) 2024-08-09 00:00:00 Vital Signs Vital Name Observation Time Observation Value Commen ts Temperature 2025-04-12 15:32:00.000 97.8 [degF] Temperature 2025-04-11 14:42:00.000 98 [degF] Temperature 2025-04-09 15:00:00.000 97.3 [degF] BMI (%) 2025-04-09 14:59:13.000 24 kg/m2 Height 2025-04-09 14:59:04.000 60 [in_us] Pulse 2025-04-12 15:32:00.000 66 /min Pulse 2025-04-11 14:42:00.000 60 /min Pulse 2025-04-09 15:00:00.000 72 /min O2 Saturation (%) 2025-04-12 15:32:00.000 97 % O2 Saturation (%) 2025-04-11 14:42:00.000 99 % O2 Saturation (%) 2025-04-09 15:00:00.000 98 % Respirations 2025-04-12 15:32:00.000 18 /min Respirations 2025-04-11 14:42:00.000 16 /min Respirations 2025-04-09 15:00:00.000 16 /min Weight (lbs) 2025-04-09 14:59:13.000 123 [lb_av] Systolic Blood Pressure 2025-04-12 15:32:00.000 126 mm [Hg] Systolic Blood Pressure 2025-04-11 14:42:00.000 108 mm [Hg] Systolic Blood Pressure 2025-04-09 15:00:00.000 104 mm [Hg] Diastolic Blood Pressure 2025-04-12 15:32:00.000 66 mm [Hg] Diastolic Blood Pressure 2025-04-11 14:42:00.000 60 mm [Hg] Diastolic Blood Pressure 2025-04-09 15:00:00.000 62 mm [Hg] Plan of Treatment Planned Activity Planned Date Details Comments Future Scheduled Test SKILLED NU RSE TO EVALUATE PATIENT, IDENTIFY PRIMARY AND CO-MORBID CONDITIONS CODED PER CODING GUIDELINES, AND DEVELOP PATIENT SPECIFIC PLAN OF CARE THAT INCLUDES PATIENT GOAL FOR HOME HEALTH. [code = SKILLED NURSE TO EVALUATE PATIENT, IDENTIFY PRIMARY AND CO-MORBID CONDITIONS CODED PER CODING GUIDELINES, AND DEVELOP PATIENT SPECIFIC PLAN OF CARE THAT INCLUDES PATIENT GOAL FOR HOME HEALTH.] Future Scheduled Test SKILLED NU RSE TO REVIEW PATIENT MEDICATIONS (PRESCRIPTION/OTC). INSTRUCT PATIENT/CAREGIVER ON ALL MEDICATIONS INCLUDING PURPOSE, WHEN TO TAKE, IMPORTANCE OF MEDICATION ADHERENCE, MONITORING OF EFFECTIVENESS, ADVERSE DRUG REACTIONS, POSSIBLE SIDE EFFECTS, AND WHEN TO NOTIFY AGENCY OR PHYSICIAN/PROVIDER OF ANY CONCERNS. [code = SKILLED NURSE TO REVIEW PATIENT MEDICATIONS (PRESCRIPTION/OTC). 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 SKILLED NURSE TO ESTABLISH SUPPORT MEASURES TO MINIMIZE RISK OF HOSPITALIZATION AND ED USE, AND INSTRUCT PATIENT/CAREGIVER ON METHODS TO REDUCE AVOIDABLE HOSPITALIZATION AND ED USE. [code = PATIENT HAS A RISK OF HOSPITALIZATION AND ED USE. SKILLED NURSE TO ESTABLISH SUPPORT MEASURES TO MINIMIZE RISK OF HOSPITALIZATION AND ED USE, AND INSTRUCT PATIENT/CAREGIVER ON METHODS TO REDUCE AVOIDABLE HOSPITALIZATION AND ED USE.] Future Scheduled Test SKILLED NU RSE TO PROVIDE INSTRUCTION TO PATIENT/CAREGIVER RELATED TO DISCHARGE PLANNING. [code = SKILLED NURSE TO PROVIDE INSTRUCTION TO PATIENT/CAREGIVER RELATED TO DISCHARGE PLANNING.] Future Scheduled Test SKILLED NU RSE TO PERFORM ENVIRONMENTAL SAFETY RISK ASSESSMENT AND FALL RISK ASSESSMENT AND PROVIDE INSTRUCTION TO IMPLEMENT ENVIRONMENTAL SAFETY AND FALL PREVENTION STRATEGIES THROUGHOUT THE CERTIFICATION PERIOD. SKILLED NURSE WILL MAINTAIN SITUATIONAL AWARENESS AND WILL NOTIFY CLINICAL TEST CENTER MANAGER AND PHYSICIAN/PROVIDER WITH ANY CHANGE IN CONDITION. [code = SKILLED NURSE TO PERFORM ENVIRONMENTAL SAFETY RISK ASSESSMENT AND FALL RISK ASSESSMENT AND PROVIDE INSTRUCTION TO IMPLEMENT ENVIRONMENTAL SAFETY AND FALL PREVENTION STRATEGIES THROUGHOUT THE CERTIFICATION PERIOD. SKILLED NURSE WILL MAINTAIN SITUATIONAL AWARENESS AND WILL NOTIFY CLINICAL TEST CENTER MANAGER AND PHYSICIAN/PROVIDER WITH ANY CHANGE IN CONDITION.] Future Scheduled Test SKILLED NU RSE FOR OBSERVATION AND ASSESSMENT OF PATIENTS PAIN LEVEL AND EFFECTIVENESS OF PAIN MANAGEMENT REGIMEN. SKILLED NURSE TO INSTRUCT PATIENT/CAREGIVER REGARDING PHARMACOLOGIC AND NON-PHARMACOLOGIC PAIN CONTROL MEASURES. SKILLED NURSE TO REPORT TO PHYSICIAN IF PAIN LEVEL IS OUTSIDE OF ESTABLISHED PARAMETERS. [code = SKILLED NURSE FOR OBSERVATION AND ASSESSMENT OF PATIENTS PAIN LEVEL AND EFFECTIVENESS OF PAIN MANAGEMENT REGIMEN. SKILLED NURSE TO INSTRUCT PATIENT/CAREGIVER REGARDING PHARMACOLOGIC AND NON-PHARMACOLOGIC PAIN CONTROL MEASURES. SKILLED NURSE TO REPORT TO PHYSICIAN IF PAIN LEVEL IS OUTSIDE OF ESTABLISHED PARAMETERS.] Future Scheduled Test SKILLED NU RSE TO ASSESS PATIENT'S SKIN INTEGRITY AND INSTRUCT PATIENT/CAREGIVER ON MEASURES TO PREVENT PRESSURE ULCERS. [code = SKILLED NURSE TO ASSESS PATIENT'S SKIN INTEGRITY AND INSTRUCT PATIENT/CAREGIVER ON MEASURES TO PREVENT PRESSURE ULCERS.] Future Scheduled Test SKILLED NU RSE TO INSTRUCT/REINFORCE MEASURES TO PREVENT BARRIERS TO CARE. [code = SKILLED NURSE TO INSTRUCT/REINFORCE MEASURES TO PREVENT BARRIERS TO CARE.] Future Scheduled Test SKILLED NU RSE TO ASSESS HOME SAFETY FOR PATIENT WITH IMPAIRED VISION AND INSTRUCT PATIENT/CAREGIVER ON SAFETY TECHNIQUES FOR ADLS AND IADLS, MEDICATION MANAGEMENT, AND HOME ADAPTATION. [code = SKILLED NURSE TO ASSESS HOME SAFETY FOR PATIENT WITH IMPAIRED VISION AND INSTRUCT PATIENT/CAREGIVER ON SAFETY TECHNIQUES FOR ADLS AND IADLS, MEDICATION MANAGEMENT, AND HOME ADAPTATION.] Future Scheduled Test NEED FOR S KILLED TEACHING AND INTERVENTION RELATED TO SURGICAL INCISIONS TO ABDOMEN, SKIN TEAR TO LEFT HAND. SKILLED NURSE OR TRAINED PATIENT/CAREGIVER TO PERFORM WOUND CARE USING CLEAN TECHNIQUE, CLEANSE WITH SOAP AND WATER, PAT DRY WITH TOWEL AND KEEP OPEN TO AIR. MONITOR FOR S/SX OF INFECTION. WOUND CARE TO BE PERFORMED DAILY AND PRN IF SOILED OR DISLODGED. 1-2 PRN SKILLED NURSE VISITS FOR WOUND CARE DUE TO COMPLICATIONS. SKILLED NURSE TO OBTAIN WOUND CULTURE PRN S/S OF INFECTION. WOUND CARE WILL BE PERFORMED BY TRAINED CAREGIVER ON DAYS WHEN SKILLED NURSE IS NOT SCHEDULED FOR A VISIT. DISCONTINUE WOUND CARE/SUPPLIES ONCE WOUND IS HEALED. [code = NEED FOR SKILLED TEACHING AND INTERVENTION RELATED TO SURGICAL INCISIONS TO ABDOMEN, SKIN TEAR TO LEFT HAND. SKILLED NURSE OR TRAINED PATIENT/CAREGIVER TO PERFORM WOUND CARE USING CLEAN TECHNIQUE, CLEANSE WITH SOAP AND WATER, PAT DRY WITH TOWEL AND KEEP OPEN TO AIR. MONITOR FOR S/SX OF INFECTION. WOUND CARE TO BE PERFORMED DAILY AND PRN IF SOILED OR DISLODGED. 1-2 PRN SKILLED NURSE VISITS FOR WOUND CARE DUE TO COMPLICATIONS. SKILLED NURSE TO OBTAIN WOUND CULTURE PRN S/S OF INFECTION. WOUND CARE WILL BE PERFORMED BY TRAINED CAREGIVER ON DAYS WHEN SKILLED NURSE IS NOT SCHEDULED FOR A VISIT. DISCONTINUE WOUND CARE/SUPPLIES ONCE WOUND IS HEALED.] Future Scheduled Test SKILLED NU RSE TO PROVIDE TEACHING ON SIGNS AND SYMPTOMS AND MANAGEMENT OF HYPERTENSION. [code = SKILLED NURSE TO PROVIDE TEACHING ON SIGNS AND SYMPTOMS AND MANAGEMENT OF HYPERTENSION.] Future Scheduled Test SKILLED NU RSE TO PROVIDE TEACHING/REINFORCEMENT RELATED TO URINARY INCONTINENCE. [code = SKILLED NURSE TO PROVIDE TEACHING/REINFORCEMENT RELATED TO URINARY INCONTINENCE.] Future Scheduled Test SKILLED NU RSE MAY COLLECT URINE SAMPLE FOR URINE REAGENT STRIP TESTING AND/OR URINALYSIS WITH CS 1-3 PRN IF INDICATED FOR SIGNS AND SYMPTOMS OF UTI. IF REAGENT STRIP TEST IS POSITIVE FOR UTI, SKILLED NURSE TO TAKE URINE SAMPLE TO LAB FOR URINE CS AND REPORT RESULTS TO PHYSICIAN. [code = SKILLED NURSE MAY COLLECT URINE SAMPLE FOR URINE REAGENT STRIP TESTING AND/OR URINALYSIS WITH CS 1-3 PRN IF INDICATED FOR SIGNS AND SYMPTOMS OF UTI. IF REAGENT STRIP TEST IS POSITIVE FOR UTI, SKILLED NURSE TO TAKE URINE SAMPLE TO LAB FOR URINE CS AND REPORT RESULTS TO PHYSICIAN.] Future Scheduled Test SKILLED NU RSE FOR INSTRUCTION/ REINFORCEMENT OF NEEDS RELATED TO NUTRITION/HYDRATION. [code = SKILLED NURSE FOR INSTRUCTION/ REINFORCEMENT OF NEEDS RELATED TO NUTRITION/HYDRATION.] Future Scheduled Test SKILLED NU RSE FOR O/A OF SELF-CARE DEFICITS AND TO PROVIDE TEACHING RELATED TO SAFE PROVISION OF ADLS. [code = SKILLED NURSE FOR O/A OF SELF-CARE DEFICITS AND TO PROVIDE TEACHING RELATED TO SAFE PROVISION OF ADLS.] Future Scheduled Test SKILLED NU RSE FOR O/A AND TEACHING RELATED TO HEPATOCELLULAR CARCINOMA AND LYMPHOCYTIC LEUKEMIA INCLUDING SIGNS AND SYMPTOMS OF DISEASE PROGRESSION, TREATMENT, AND MANAGEMENT OF POTENTIAL SIDE EFFECTS. [code = SKILLED NURSE FOR O/A AND TEACHING RELATED TO HEPATOCELLULAR CARCINOMA AND LYMPHOCYTIC LEUKEMIA INCLUDING SIGNS AND SYMPTOMS OF DISEASE PROGRESSION, TREATMENT, AND MANAGEMENT OF POTENTIAL SIDE EFFECTS.] Future Scheduled Test SKILLED NU RSE FOR O/A AND SKILLED TEACHING RELATED TO SIGNS AND SYMPTOMS OF INFECTION AND INFECTION CONTROL MEASURES. [code = SKILLED NURSE FOR O/A AND SKILLED TEACHING RELATED TO SIGNS AND SYMPTOMS OF INFECTION AND INFECTION CONTROL MEASURES.] Future Scheduled Test HOME HEALT H AGENCY MAY ACCEPT ORDERS FROM THE FOLLOWING PHYSICIANS: DR AISHA CHRISTIAN; [facility]. [code = HOME HEALTH AGENCY MAY ACCEPT ORDERS FROM THE FOLLOWING PHYSICIANS: DR AISHA CHRISTIAN; [facility]. ] Future Scheduled Test PHYSICAL T HERAPIST TO EVALUATE PATIENT FOR POST SURGICAL, WEAKNESS, ENDURANCE. [code = PHYSICAL THERAPIST TO EVALUATE PATIENT FOR POST SURGICAL, WEAKNESS, ENDURANCE. ] Future Scheduled Test OCCUPATION AL THERAPIST TO EVALUATE PATIENT FOR FALL SAFETY, ADL ASSISTANCE, BUE WEAKNESS. [code = OCCUPATIONAL THERAPIST TO EVALUATE PATIENT FOR FALL SAFETY, ADL ASSISTANCE, BUE WEAKNESS.] Future Scheduled Test OCCUPATION AL THERAPY TO EVALUATE AND TREAT. OCCUPATIONAL THERAPY EVALUATION COMPLETED. NO ADDITIONAL VISITS RECOMMENDED AT THIS TIME. [code = OCCUPATIONAL THERAPY TO EVALUATE AND TREAT. OCCUPATIONAL THERAPY EVALUATION COMPLETED. NO ADDITIONAL VISITS RECOMMENDED AT THIS TIME.] Goal Patient Goal - G ET BACKON MY FEET, FELING BETTER, LESS PAIN Goal Provider Goal - A PLAN OF CARE WILL BE ESTABLISHED THAT MEETS PATIENT'S GROUP HOME NEEDS AND INCLUDES PATIENT GOAL FOR HOME HEALTH. Goal Provider Goal - PATIENT/CAREGIVER WILL VERBALIZE UNDERSTANDING OF EDUCATION PROVIDED ON MEDICATIONS BY THE END OF THE CERTIFICATION PERIOD. Goal Provider Goal - PATIENT WILL HAVE SUPPORT MEASURES ESTABLISHED TO PREVENT HOSPITALIZATION AND ED USE AND PATIENT/CAREGIVER WILL VERBALIZE/DEMONSTRATE METHODS TO REDUCE AVOIDABLE HOSPITALIZATION AND ED USE BY END OF EPISODE. Goal Provider Goal - PATIENT/CAREGIVER WILL VERBALIZE UNDERSTANDING OF DISCHARGE PLANNING INSTRUCTIONS BY DATE OF DISCHARGE. Goal Provider Goal - PATIENT/CAREGIVER WILL VERBALIZE/DEMONSTRATE EFFECTIVE ENVIRONMENTAL SAFETY AND FALL PREVENTION STRATEGIES, WILL REMAIN SAFE IN THE COMMUNITY, AND WILL BE FREE OF DANGER TO SELF AND OTHERS THROUGHOUT THE CERTIFICATION PERIOD. Goal Provider Goal - PATIENT/CAREGIVER WILL DEMONSTRATE UNDERSTANDING OF PHARMACOLOGIC AND NONPHARMACOLOGIC PAIN CONTROL MEASURES AND PATIENT WILL HAVE IMPROVEMENT IN PAIN INTERFERING WITH ACTIVITY EVIDENCED BY PAIN AT A LEVEL THAT IS ACCEPTABLE TO THE PATIENT AND PAIN LEVEL WITHIN ESTABLISHED PARAMETERS BY END OF CERTIFICATION PERIOD. Goal Provider Goal - PATIENT/CAREGIVER WILL VERBALIZE UNDERSTANDING OF PRESSURE ULCER PREVENTION BY END OF THE EPISODE. Goal Provider Goal - PATIENT / CAREGIVER WILL VERBALIZE UNDERSTANDING OF BARRIERS PREVENTING PROPER CARE AND DEMONSTRATE MEASURES TO ELIMINATE THOSE BARRIERS DURING THIS EPISODE. Goal Provider Goal - PATIENT/CAREGIVER WILL BE ABLE TO APPLY PRINCIPLES OF ENVIRONMENTAL MODIFICATION TO MAINTAIN THE LEVEL OF SAFETY FOR THE LOW VISION PATIENT WITHIN THE HOME SETTING AND PREVENT FALL/INJURY THIS EPISODE Goal Provider Goal - WOUND CARE WILL BE COMPLETED AND PATIENT WILL HAVE IMPROVED WOUND STATUS EVIDENCED BY NO SIGNS AND SYMPTOMS OF INFECTION, DECREASED WOUND SIZE, AND/OR NO COMPLICATIONS BY THE END OF THE CERTIFICATION PERIOD. Goal Provider Goal - PATIENT/CAREGIVER WILL VERBALIZE SIGNS AND SYMPTOMS OF HYPERTENSION AND WILL BE ABLE TO DEMONSTRATE ABILITY TO MANAGE EXACERBATION BY END OF THE EPISODE. Goal Provider Goal - PATIENT / CAREGIVER WILL VERBALIZE UNDERSTANDING OF EFFECTS OF URINARY INCONTINENCE BY THE END OF THE CERTIFICATION PERIOD. Goal Provider Goal - URINE SPECIMEN WILL BE OBTAINED PRN FOR SIGNS AND SYMPTOMS OF UTI AND RESULTS WILL BE REPORTED TO PHYSICIAN THROUGHOUT THE CERTIFICATION PERIOD. Goal Provider Goal - PATIENT/CAREGIVER WILL DEMONSTRATE ABILITY TO SELF MANAGE NEEDS RELATED TO NUTRITION/HYDRATION THROUGHOUT THE EPISODE. Goal Provider Goal - PATIENT/CAREGIVER WILL VERBALIZE/DEMONSTRATE UNDERSTANDING OF SAFE PROVISION OF ADLS BY THE END OF THE CERTIFICATION PERIOD. Goal Provider Goal - PATIENT/CAREGIVER WILL VERBALIZE/DEMONSTRATE MANAGEMENT OF HEPATOCELLULAR CARCINOMA AND LYMPHOCYTIC LEUKEMIA CANCER/NEOPLASM DISEASE AND THE SIDE EFFECTS OF TREATMENTS DURING THIS EPISODE. Goal Provider Goal - PATIENT/CAREGIVER WILL VERBALIZE/DEMONSTRATE UNDERSTANDING OF S/S OF INFECTION AND INFECTION CONTROL MEASURES. SIGNS AND SYMPTOMS OF INFECTION WILL BE IDENTIFIED AND PHYSICIAN NOTIFIED FOR PROMPT INTERVENTION THROUGHOUT THE CERTIFICATION PERIOD. Goal Provider Goal - ADDITIONAL ORDERS WILL BE RECEIVED FROM ALTERNATE PHYSICIAN IN A TIMELY MANNER THROUGHOUT THE CERTIFICATION PERIOD. Goal Provider Goal - A PHYSICAL THERAPY EVALUATION TO BE COMPLETED WITH RECOMMENDATIONS AND/OR WRITTEN PLAN OF TREATMENT ESTABLISHED FOR PHYSICIANS SIGNATURE. Goal Provider Goal - OCCUPATIONAL THERAPY EVALUATION TO BE COMPLETED WITH RECOMMENDATIONS AND WRITTEN PLAN OF TREATMENT ESTABLISHED FOR THE PHYSICIANS SIGNATURE. Goal Provider Goal - NONE Progress Notes Progress Notes <paragraph>[Visit Date: 2024 by RADHA IYER LPN]:</paragraph><paragraph>ASSESSMENT PERFORMED AND VS OBTAINED UPON ARRIVAL. VS WNL AT THIS TIME. EDUCATED PT ON SAFETY PRECAUTIONS AND USING ASSISTIVE DEVICE AT ALL TIMES IF NEEDED. EDUCATED PT ON LOW NA DIET, AVOIDANCE OF HIGH NA FOODS, READING FOOD LABELS, AND FOOD PREPARATION. EDUCATED PT ON SIGNS AND SYMPTOMS OF HYPERTENSION INCLUDING FACIAL FLUSHING, TINNITUS, HEADACHES, DIZZINESS, NOSEBLEED, FATIGUE, AND BLURRED VISION. EDUCATED PT ON BLADDER INCONTINENCE AND SKIN INTEGRITY WELL MEASURES TO PROTECT SKIN INCLUDING KEEPING SKIN AND DRY. PT STATED UNDERSTANDING. PT DENIED FALLS OR INJURIES AND STATED NO TRIPS TO ER. PT EDUCATED TO CALL [facility] FOR QUESTIONS OR CONCERNS.</paragraph> <paragraph>[Visit Date: 2024 by ROQUE ECKERT RN, ADMISSION NURSE]:</paragraph><paragraph>TYPE OF VISIT: RN00 VISIT DATE: 04/09/25 PAYOR SOURCE: [facility] FOCUS OF CARE: CKD COMORBIDITIES: HEPATOCELLULAR CARCINOMA, ACUTE RESPIRATORY INSUFFICIENCY, HEPATIC INSUFFICIENCY, ACUTE BLOOD LOSS, LYMPHOCYTIC LEUKEMIA, HYPERTENSION, LIVER RESECTION CHF / COPD? NO TELEHEALTH: (YES/NO. IF NO, EXPLAIN) DISCIPLINES: PT DECLINED CLINICAL REPORT: - SUMMARY OF REASON FOR ADMISSION/REFERRAL: PATIENT RECENTLY HAD LIVER RESECTION DUE TO CANCER/TUMOR. ALSO HAD GALLBLADDER REMOVED. DISCHARGED HOME FROM [facility]. CREATININE UNSTABLE AT THIS TIME. - LIVING/HOME ENVIROMENT: LIVES AT HOME WITH BROTHER, BROTHER WORKS AND IS GONE FOR MOST OF DAY - DME USED: WALKER, CANE, SHOWER CHAIR - GAIT ASSESSMENT: WEAKNESS - VITALS ASSESSMENT: 104/62, 72, 16, 98%. 97.3 F. COMPLAINS OF PAIN / TO ABDOMEN, SURGICAL AREA. PATIENT HAS 3 SURGICAL INCISIONS TO MIDLINE ABDOMEN THAT ARE GLUED SHUT. NO SIGNS OF INFECTION. PATIENT ALSO HAS INCISIONS ON BOTH LEFT AND RIGHT LOWER QUAD OF ABDOMEN, REFUSED RN TO ASSESS AT START OF CARE DUE TO PATIENT HAVING FRAGILE SKIN AND NOT WANTING DRESSINGS REMOVED. PATIENT ALSO HAS A SKIN TEAR TO TOP OF LEFT HAND FROM TAKE BEING REMOVED IN THE HOSPITAL. PATIENT CURRENTLY RECEIVING IMMUNOTHERAPY FOR LEUKEMIA AND LIVER CANCER. FOLLOWS WITH [facility]. PATIENT HAS A RIGHT CHEST PORT THAT HAS ACCESS, WILL BE MANAGED BY A CANCER CENTER. PATIENT WILL BE HAVING ALL LAB DRAWS DONE AT THE CANCER CENTER WELL. PATIENT GOES EVERY 4 WEEKS FOR IMMUNOTHERAPY, NEXT VISIT IS ON Thursday04/10/25. PATIENT HAS POSTOP FOLLOW UP ON 04/13 WITH SURGEON. PATIENT ALSO DOES NOT HAVE OXYCODONE OR CIPRO IN THE HOME DUE TO LEAVING THE [facility] WITHOUT HER SCRIPTS. RN CALLED [facility], THEY STATED THAT SHE CAN GET THE MEDS AT THE [facility] WHEN SHE GOES FOR HER IMMUNOTHERAPY THURSDAY MORNING. PATIENT'S SETS UP HER MEDICATIONS IN A WEEKLY MEDIPLANNER. DENIES ANY QUESTIONS AT THIS TIME. TAKING P.R.N. TYLENOL FOR PAIN RELIEF. HAS 2+ PITTING EDEMA TO RIGHT LEG ONLY, WEARING COMPRESSION STOCKINGS. PATIENT UPDATED ON PLAN OF CARE AND IN AGREEANCE, DENIED THE NEED FOR HOME HEALTH AIDE DUE TO PATIENT GIVING HERSELF BED BATHS AT THE SINK. - PLAN OF CARE APPROVAL DATE/TIME FROM FOLLOWING PHYSICIAN: VERBAL ATTESTATION RECEIVED FROM MIN, AGENT OF DOCTOR DR. GUTIÉRREZ UPDATED ON PFOC AND WILL FOLLOW FOR HOME CARE ORDERS. 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: REF PUMPER HAND: DATE OF NEXT VISIT: 04/12 RAPID SUBSEQUENT VISIT NEEDED: (YES/NO) NO HOSPITAL RISK: OW SPECIALTY PROGRAM: NONE POINT CARE VISIT ALERT NEEDED: ADDED WELCOME VIDEO COMPLETED: YES PROVIDER NAME: DR GUTIÉRREZ NEXT PROVIDER APPOINTMENT: PATIENT NEEDS TO SCHEDULE</paragraph> Encounters Start Date/Time End Date/Time Encounter Type Admission Type Attending Clinicians Care Facility Care Department Encounter ID Discharge Date Discharge Status Discharge Condition Discharge Reason Percent Goals Met 2025-04-09 00:00:00 2025-06-07 00:00:00 Outpatient NEW ADMISSION [facility] [id number] 22.58
--- OUTSIDE RECORDS SUMMARY | 2025-06-06 20:00 | XMS_ITS | Clinical Summary ---
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 [code = SKILLED NURSE TO PERFORM ENVIRONMENTAL SAFETY RISK ASSESSMENT AND FALL RISK ASSESSMENT AND PROVIDE INSTRUCTION TO IMPLEMENT ENVIRONMENTAL SAFETY AND FALL PREVENTION STRATEGIES THROUGHOUT THE CERTIFICATION PERIOD. SKILLED NURSE WILL MAINTAIN SITUATIONAL AWARENESS AND WILL NOTIFY CLINICAL ELECTRONIC CONTROLS REPAIRER SUPERVISOR AND PHYSICIAN/PROVIDER WITH ANY CHANGE IN CONDITION.] [...] FROM THE FOLLOWING PHYSICIANS: DR AISHA CHRISTIAN; [facility]. [code = HOME HEALTH AGENCY MAY ACCEPT ORDERS FROM THE FOLLOWING PHYSICIANS: DR AISHA CHRISTIAN; [facility]. ] Future Scheduled Test PHYSICAL T HERAPIST [...] TRIPS TO ER. PT EDUCATED TO CALL [facility] FOR QUESTIONS OR CONCERNS.</paragraph> <paragraph>[Visit Date: 2024 by ROQUE ECKERT RN, ADMISSION NURSE]:</paragraph><paragraph>TYPE OF VISIT: RN00 VISIT DATE: 04/09/25 PAYOR SOURCE: [facility] FOCUS OF CARE: CKD COMORBIDITIES: HEPATOCELLULAR CARCINOMA, ACUTE RESPIRATORY INSUFFICIENCY, HEPATIC INSUFFICIENCY, ACUTE BLOOD LOSS, LYMPHOCYTIC LEUKEMIA, HYPERTENSION, LIVER RESECTION CHF / COPD? NO TELEHEALTH: (YES/NO. IF NO, EXPLAIN) DISCIPLINES: PT DECLINED CLINICAL REPORT: - SUMMARY OF REASON FOR ADMISSION/REFERRAL: PATIENT RECENTLY HAD LIVER RESECTION DUE TO CANCER/TUMOR. ALSO HAD GALLBLADDER REMOVED. DISCHARGED HOME FROM [facility]. CREATININE UNSTABLE AT THIS TIME. - [...] FOR LEUKEMIA AND LIVER CANCER. FOLLOWS WITH [facility]. PATIENT HAS A RIGHT CHEST PORT THAT [...] IN THE HOME DUE TO LEAVING THE [facility] WITHOUT HER SCRIPTS. 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
== END 2025-04-14 15:23 | disposition home or self-care (01) ==
PROVIDERS: PCP Family Medicine; Visit Provider Family Medicine
DX: R60.0 Localized edema (principal)
CPT/HCPCS: 93970